=== PATIENT | female | born 1960 | race Caucasian/White ===

== ENCOUNTER → 2016-12-19 | Outpatient (CLI) | payer BC ==
[~2016-12-19] MED LIST: ADVAIR 250/501 DISK IH; CYMBALTA20 MG PO; ZANTAC150 MG PO
== END | disposition home or self-care (01) ==
LOC: CDC 15:57
DX: Z01.810 Encounter for preprocedural cardiovascular examination (principal); G56.01 Carpal tunnel syndrome, right upper limb
CPT/HCPCS: 93000